=== PATIENT | female | born 1970 | race Caucasian/White ===

== ENCOUNTER → 2019-01-22 13:23 | Outpatient (CLI) | payer BC, SELFPAY ==
--- NOTE | 2019-01-22 13:37 | XR_ITS ---
XR foot wt bearing LT 3V HISTORY: ITS.REASON: pain ORDERING PHYSICIAN: Rebekah Joyner DPM PATIENT AGE: 48 years COMPARISON: None FINDINGS: There are mild osteoarthritic changes at the first metatarsal-phalangeal joint with bony spurring. Minimal osteoarthritic change at the talonavicular joint with some nonspecific calcification anterior to the neck of the talus which could be due to an old injury. Calcaneal spur is noted at 4 mm and there is a enthesophyte at the Achilles insertion. IMPRESSION: Degenerative change with osteoarthritis of the first MTP joint and mild osteoarthritis at the talonavicular joint
--- NOTE | 2019-01-22 13:37 | XR_ITS ---
XR foot wt bearing RT 3V HISTORY: Foot pain ITS.REASON: pain ORDERING PHYSICIAN: Rebekah Joyner DPM PATIENT AGE: 48 years COMPARISON: None FINDINGS: No fracture or dislocation. No lytic or blastic change. There is normal mineralization.. The joint spaces are well-preserved. There are moderate osteoarthritic changes of the first metatarsal phalangeal joint. There is normal alignment. There is a small calcaneal spur at 9 mm. IMPRESSION: Moderate osteoarthritis of the first metatarsal phalangeal joint with bony spurring
== END ==
PROVIDERS: PCP Internal Medicine Adolescent Medicine; Visit Provider Podiatrist
DX: M79.672 Pain in left foot (principal)
CPT/HCPCS: 73630

== ENCOUNTER 2019-03-05 14:30 | Outpatient (RCR) | payer BC, SELFPAY ==
--- NOTE | 2019-02-26 10:26 | HMH.PTOPEV ---
PT Outpatient Evaluation Rehab PT Outpatient Evaluation Start: 02/26/19 10:16 Freq: Status: Active Protocol: Document 02/26/19 10:16 EJ (Rec: 02/26/19 10:26 EJ [id number]) Electronically Signed By Christopher Vo, PT 02/26/19 10:16 Outpatient Therapy Subjective History Subjective History Patient is a 48 year old female presenting to outpatient PT with reports of L heel pain starting approximately 2 years ago of insidious onset. Referred with the diagnosis of L achilles tendonitis. No other comorbidities to report. Chief Complaint Pain Symptom Type Ache,Burning Symptoms Relieved By Rest/Positioning Symptoms Aggravated By Standing,Physical Activity, Walking Prior Functional Limitations None Current Functional Limitations Housework,Standing,Squatting, Recreation Activity,Walking, Stairs,Balance Symptom Description Intermittent Level of pain today (0-10) 0 Pain scale - at its best (0-10) 0 Pain scale - at its worst (0-10) 5 Ankle/Foot Eval Gait Observation General Gait Pattern Observation Antalgic Gait,Decrease Weight Bear (L) Assistive Device Ambulation Assistive Device None Palpation Tenderness left Ankle/Foot Palpation Findings Tenderness Ankle/Foot Palpation Overall Comment L distal lateral achilles ROM bilateral Ankle/Foot ROM Reason Not Measured Within Functional Limits Great Toe ROM Reason Not Measured Within Functional Limits, Orthopedic Precautions Accessory Movements Ankle Accessory Movements that Elicit Talus Dorsal [place] Symptoms MMT left Ankle Dorsiflexion Strength Grade 4 Good Ankle Plantarflexion Strength Grade 4 Good Foot Eversion Strength Grade 4- Good- Foot Inversion Strength Grade 4- Good- Special Tests Ankle Anterior Drawer Test Negative Left Ankle Eversion Test Negative Left Talar Tilt Test Negative Left Ankle Posterior Drawer Test Negative Left Foot Interdigital Neuroma Test Negative Left Neuro tests normal sensation to monofilament Yes Outpatient Therapy Assessment Impairments Problems/Impairmments Palpation Tenderness,Impaired Strength,Impaired Gait Pattern ,Impaired Walking,Impaired Standing,Impaired Household Care,Impaired Stair Climbing, Impaired Incli
== END 2019-03-05 14:35 | disposition home or self-care (01) ==
LOC: PT 14:30
PROVIDERS: Visit Provider Podiatrist
DX: M76.62 Achilles tendinitis, left leg (principal)
CPT/HCPCS: 97010; 97014; 97033; 97035; 97110; 97163; G0283

== ENCOUNTER 2021-03-16 19:38 | Emergency (ER) | payer BC, SELFPAY ==
[2021-03-16 20:00] VITALS: BP 138/62; PULSE 95; RESP 12; TEMP 36.8; O2SAT 97; BMI 43.0
--- NOTE | 2021-03-16 20:14 | HMH.EDUTC ---
[facility] [place] Clinical Impression: Cellulitis of right hand Disposition: Home, Self-Care Condition on Discharge: Good Instructions: Cellulitis Additional Instructions: Watch the for signs of infection, such as redness, swelling, drainage, fever. etc. Take tylenol or ibuprofen for pain. Follow up with your regular doctor. Take the medications and apply the topical medications as directed. GO TO THE ER FOR ANY WORSENING SYMPTOMS OR CONCERNS. Prescriptions: Mupirocin [Bactroban 2% Ointment 22gm tube] 1 applicatio TP TID 7 Days #1 tube Transmission Status: Received by [id number] cephALEXin [cephALEXin 500mg capsule] 500 mg PO Q6H 10 Days #40 cap Transmission Status: Received by [id number] Referrals: Geovany Garsia MD [Primary Care Provider] - Time of Disposition: 20:17 Medical Decision Making - Medical Records Medical records reviewed: No: I reviewed the patient's medical records. - Bassem Inquiry Pt receiving controlled substance: No Vital Signs: 03/16/21 20:00 03/16/21 21:19 Temperature 98.3 F 98.3 F Temperature Source Oral Pulse Rate 95 H Pulse Rate [Right Brachial] 95 H Respiratory Rate 12 12 Blood Pressure 138/62 Blood Pressure [Right Arm] 138/62 Blood Pressure Mean [Right Arm] 87 Blood Pressure Source [Right Arm] Automatic Cuff Blood Pressure Position [Right Arm] Sitting 02 Sat by Pulse Oximetry 97 Oxygen Delivery Method Room Air [facility] [place] - General Stated complaint: poss spider bite Time Seen by Provider: 03/16/21 20:14 - History of Present Illness Provider Complaint: She states that she has a painful swollen area on her right hand. She states that she was bit by a spider she thinks. She states that her hand was swollen earlier, but the swelling has went down. - Related Data Previous Rx's Medication Instructions Recorded Nitazoxanide [Alinia] 500 mg PO Q12H 3 Days #6 tab 08/19/19 Ondansetron [Zofran 4mg ODT] 4 mg PO TIDP PRN #10 tab.rapdis 08/19/19 Mupirocin [Bactroban 2% Ointment 1 applicatio TP TID 7 Days #1 tube 03/16/21 22gm tube] cephALEXin [cephALEXin 500mg 500 mg PO Q6H 10 Days #40 cap 03/16/21 capsule] Allergies Allergy/AdvReac Type Severity Reaction Status Date / Time erythromycin base Allergy Verified 03/16/21 20:36 [facility] [place] History - Hepatitis A Screen Attestation statement:: This patient has been screened for Hepatitis A risk factors. I have reviewed the patient's past medical history: Yes Medical History: Denies:: Cancer, Diabetes Mellitus Type 1, Diabetes Mellitus Type 2, Internal Pacemaker, MRSA Other Medical History: Reports: Arthritis Other Surgeries: Yes: Appendectomy, Tubal Ligation. No: Pacemaker Amputation: No Fractures: No - Social History Smoking Status: Current every day smoker Tobacco Type: cigarettes # Packs/Day (cigarettes): 0 Alcohol Intake: never Alcohol Intake Frequency:: other Occupational Status: unemployed Housing: apartment Family Hx:: Diabetes, Cancer ROS Obtained: Yes All systems reviewed & no additional complaints - Constitutional Constitutional: Reports system reviewed and no additional complaints, except as docu - Eyes Eyes: Reports system reviewed and no additional complaints, except as docu - ENT Ears, Nose, Mouth, and Throat: Reports system reviewed and no additional complaints, except as docu - Cardiovascular Cardiovascular: Reports system reviewed and no additional complaints, except as docu - Respiratory Respiratory: Reports system reviewed and no additional complaints, except as docu - Integumentary/Breasts Skin/Breast: Reports as per HPI - Neurologic Neurologic: Denies tingling/numbness/burning sensations Physical Exam - General General appearance: alert, in no apparent distress - Head Head exam: atraumatic, normocephalic, normal inspection - Eye Eye exam: Present: normal appearance, PERRL, EOMI - ENT ENT exam:
[2021-03-16 21:19] VITALS: BP 138/62; PULSE 95; RESP 12; TEMP 36.8; O2SAT 97
== END 2021-03-16 21:20 | disposition home or self-care (01) ==
PROVIDERS: Emergency Provider Nurse Practitioner Family; PCP Internal Medicine Adolescent Medicine
DX: L03.113 Cellulitis of right upper limb (principal); F17.210 Nicotine dependence, cigarettes, uncomplicated
CPT/HCPCS: 99202; G0463

== ENCOUNTER → 2021-10-29 12:15 | Outpatient (CLI) | payer BC, SELFPAY | PROVIDERS: PCP Internal Medicine Adolescent Medicine; Visit Provider Nurse Practitioner Family | DX: Z20.822 Contact with and (suspected) exposure to COVID-19 (principal) | CPT/HCPCS: C9803; U0003; U0005 ==

== ENCOUNTER 2024-02-16 16:46 | Emergency (ER) | payer OTHER, SELFPAY ==
[2024-02-16 17:05] VITALS: BP 131/81; PULSE 89; RESP 19; TEMP 36.5; O2SAT 98; BMI 42.2
--- NOTE | 2024-02-16 17:20 | ED_ITS ---
Discharge Plan Disposition Patient Disposition: Home, Self-Care Condition: Good Prescriptions Prescriptions: New clindamycin HCl 300 mg capsule 300 mg PO Q8H 7 Days Qty: 21 0RF No Action amoxicillin 500 mg capsule 500 mg PO DAILY Patient Comments: TAKE 1 CAPSULE BY MOUTH 4 TIMES DAILY fluconazole 150 mg tablet 150 mg PO ONCE Patient Comments: TAKE 1 TABLET BY MOUTH DIRECTED Referrals Follow up/Referrals: Geovany Garsia MD [Primary Care Provider] - See instructions Activity Restrictions/Add. Instructions Additional Instructions/Restrictions: Stop the Amoxicillin and start the Clindamycin this will cover cellulitis and your dental infection Follow up with your Family Doctor if no improvement Over the counter Benadryl may help with itching Straight to ER if any life threatening symptoms, worsening of redness and swelling or if you noticed streaks from the area *Monitor closely. Follow up immediately for new or worsening symptoms including but not limited to redness, swelling, streaking from site fever or chills. *Warm compress 15 minutes 3-4 times day *Never squeeze or pop these on your own. Seek immediate medical attention next time this occurs *Monitor Temp. Tylenol every 4 hours as needed and ibuprofen every 6 hours as needed (as long as your primary care doctor has told you that it is ok to take both. For fever, aches, pain. ER if no less that 101 despite Tylenol and ibuprofen ?Follow up with your family doctor/primary care physician in the next 48-72 hours if no improvement Clinical Impressions Clinical Impression: Cellulitis Instructions Patient Instructions: Cellulitis Discharge ED Provider: Marietta Feliz [facility] General Stated complaint: ? spider bite on right foot Mode of Arrival: Ambulatory Source of Information: Patient Limitations: No Limitations Time Seen by Provider: 02/16/24 17:21 Description of Symptoms (Recalled from Triage Doc. by RN): PATIENT C/O POSSIBLE SPIDER BITE TO TOP OF RIGHT FOOT SINCE SATURDAY HEENT Symptoms (Recalled from RN notes): No Resp Symptoms (Recalled from RN notes): No Skin Symptoms (Recalled from RN notes): Yes MS Symptoms (Recalled from RN notes): No Functional Status (Recalled from RN notes): WNL History of Present Illness Provider Complaint: Patient states that she in the basement and she saw a spider on the top of her right foot and she went to knock off the spider and it bite her on the top of the foot States that she has been on amoxicillin for dental infection but now her foot is red and swollen and she has had spider bite before that she had to take antibiotics for so she came in to get it checked since Amoxicillin isnt helping Related Data Home Medications Medication Instructions Recorded Confirmed amoxicillin 500 mg capsule 500 mg PO DAILY 02/16/24 02/16/24 fluconazole 150 mg tablet 150 mg PO ONCE 02/16/24 02/16/24 Previous Rx's Medication Instructions Recorded clindamycin HCl 300 mg capsule 300 mg PO Q8H 7 days #21 caps 02/16/24 Allergies Allergy/AdvReac Type Severity Reaction Status Date / Time erythromycin base Allergy Verified 03/16/21 20:36 Worker's Comp Is this a Worker's Comp case?: No [facility] Disclaimer: The information contained in this section may have been updated after the patient was seen, as this information can be updated by other users. Surgical History (Updated 02/16/24 @ 17:18 by Zahra Dutta RN) H/O tubal ligation History of eye surgery History of section History of appendectomy Social History Smoking Status: Current every day smoker tobacco type: cigarettes packs per day: 0 second hand exposure: Yes alcohol intake: never current occupational status: other Travel in the last 8 weeks: None housing: apartment current occupational exposures/hazards: No caffeine: Yes ROS Obtained: Yes All systems reviewed & no additional complaints except as documented and Yes Systems reviewed as appropriate & no additional complaints except as documented Constitutional Constitutional: Reports system reviewed and no additional complaints, except as documented and Reports as per HPI Cardiovascular Cardiovascular: Reports system reviewed and no additional complaints, except as documented and Reports as per HPI Respiratory Respiratory: Reports system reviewed and no additional complaints, except as documented and Reports as per HPI Gastrointestinal Gastrointestingal: Reports system reviewed and no additional complaints, except as documented and as per HPI Integumentary/Breasts Skin/Breast: Reports system reviewed and no additional complaints, except as documented and Reports as per HPI Comments: Redness and swelling to right foot after spider bite on Saturday Physical Exam General General appearance: alert and in no apparent distress ENT ENT exam: Present mucous membranes moist Respiratory Respiratory exam: Present normal lung sounds bilaterally; Absent respiratory distress or wheezes Cardiovascular Cardiovascular exam: Present regular rate, normal rhythm and normal heart sounds Expanded Lower Extremity Exam Right: Foot/toe exam: Present tenderness, swelling and erythema (mild erythema noted) Neurological Exam Neurological exam: Present alert, oriented X3 and normal gait Medical Decision Making Bassem Inquiry Pt receiving controlled substance: No Bassem was queried for this patient: No Vital Signs: 02/16/24 17:05 Temperature 97.7 F Temperature Source Oral Pulse Rate [Left Brachial] 89 Respiratory Rate 19 Blood Pressure [Left Arm] 131/81 Blood Pressure Mean [Left Arm] 97 Blood Pressure Source [Left Arm] Automatic Cuff Blood Pressure Position [Left Arm] Sitting 02 Sat by Pulse Oximetry 98 Oxygen Delivery Method Room Air Medical Decision Narrative: Cellulitis noted patient currently on Amoxicillin for dental infection Spoke with pharmacy will have patient stop the Amoxicillin and prescribe Clindamycin 300mg TID x 7 days to cover both the dental infection and Cellulitis and have her follow up as directed
[2024-02-16 17:33] VITALS: BP 131/81; PULSE 89; RESP 19; TEMP 36.5; O2SAT 98
== END 2024-02-16 17:36 | disposition home or self-care (01) ==
PROVIDERS: Emergency Provider Nurse Practitioner; PCP Internal Medicine Adolescent Medicine
DX: L03.115 Cellulitis of right lower limb (principal); F17.210 Nicotine dependence, cigarettes, uncomplicated
CPT/HCPCS: 99212; 99214; G0463

== ENCOUNTER 2025-06-16 01:22 | Emergency (ER) | payer MEDICAID, SELFPAY ==
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
[2025-06-16 01:35] VITALS: BP 132/95; PULSE 93; RESP 18; TEMP 36.9; O2SAT 99; BMI 41.5
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
[2025-06-16] MEDS: LIDOCAINE 5% TRANSDERMAL PATCH 1 EACH TD (01:54)
[2025-06-16] MEDS: METHOCARBAMOL 500MG TABLET 1000 MG PO (02:27)
[2025-06-16 02:32] VITALS: BP 124/84; PULSE 87; RESP 18; TEMP 36.6; O2SAT 98
== END 2025-06-16 02:34 | disposition home or self-care (01) ==
PROVIDERS: Emergency Provider Emergency Medicine; PCP Internal Medicine Adolescent Medicine
DX: M77.12 Lateral epicondylitis, left elbow (principal); M25.522 Pain in left elbow; V49.9XXA Car occupant (driver) (passenger) injured in unspecified traffic accident, initial encounter
CPT/HCPCS: 73080; 99283